=== PATIENT | male | born 1935 | race Caucasian/White ===

== ENCOUNTER → 2018-02-11 17:17 | Outpatient (CLI) | payer MEDICARE, SELFPAY ==
--- NOTE | 2018-02-11 09:45 | FLU_PTH ---
PATIENT: TAMERA STEPHENS LOC: [facility] U#:[id number] AGE/SX: 89/M ROOM: RE02/11/[address]: Dr. Kenji Pond MD : 1935 BED: DIS: SPEC #: [id number] RECD: 02/12/18 08:42 STATUS: JONATHAN SPENSER #: [id number] ANTON: 02/11/18 09:[address]: Kenji Pond DEPT: CYTOLOGY RECD BY: Lara Sanches ENTERED: 02/12/18 08:44 SP TYPE: Fluid OTHR DR: Dr. Feliberto Argueta MD Tissues: Urine Procedures: Pap Stain (control) Special Stain Group II Surgery Specimen Level IV Cytospin Fluid HEADER OPERATION: Not noted PRE-OP DIAGNOSIS: Hematuria TISSUE SUBMITTED: Urine for cytology DIAGNOSIS CYTOLOGY Urine for cytology (cytospin): Atypical urothelial cells noted. SJ:john 02/13/18 COMMENT Clinical correlation and appropriate follow up are necessary. CYTOLOGY STUDY Slides are reviewed. CYTOLOGY GROSS Received is 60 ml of gold fluid labeled with the patient's name and and designated per the requisition as urine. Submitted for cytology preparation. / NIKA:lyudmila 02/12/18 TC:5 CPT: 99360
[2018-02-11 17:19] LABS: Cytology, Body Fluid / CSF SEE PATHOLOGY REPORT
== END ==
PROVIDERS: Family Provider Family Medicine; PCP Family Medicine; Visit Provider Urology
DX: R31.9 Hematuria, unspecified (principal)
CPT/HCPCS: 88108; 88305; 88313

== ENCOUNTER 2018-03-21 12:38 | Inpatient (IN) | payer MEDICARE, SELFPAY ==
[2018-03-14 13:22] VITALS: BP 134/61; PULSE 52; RESP 16; TEMP 36.5; O2SAT 93; BMI 29.2
--- NOTE | 2018-03-14 13:38 | SDCEKG_ITS ---
Test Reason : Blood Pressure : / mmHG Vent. Rate : 060 BPM Atrial Rate : 060 BPM P-R Int : 160 ms QRS Dur : 086 ms QT Int : 396 ms P-R-T Axes : 034 048 055 degrees QTc Int : 396 ms Normal sinus rhythm Normal ECG Confirmed by INDIGO BARTLETT, FARIDEH ([id number]), telegraph editor MIGDALIA FREEMAN ([id number]) on 03/18/2018 3:37:12 PM Referred By: Kenji Pond Confirmed By:FARIDEH SOOD MD
[2018-03-14 14:03] LABS: Hematocrit 47.8 % (40-54); Hemoglobin 16.8 g/dl (13.0-16.5); Mean Corp Hgb Conc 35.1 g/gl (32-36); Mean Corpuscular Hgb 32.5 pg (27.0-32.0); Mean Corpuscular Volume 92.5 fL (80-94); Mean Platelet Vol. 9.8 fl (6.2-12.0); Platelet Count 255 K/mm3 (150-450); RBC Distribution Width CV 12.5 % (11.6-14.6); RBC Distribution Width SD 41.9 fl (35.1-43.9); Red Blood Count 5.17 M/mm3 (4.6-6.2); White Blood Count 6.7 K/mm3 (4.4-11.0)
[2018-03-14 14:06] LABS: Scan Indicated on CBC? Y/N NO
[2018-03-14 14:21] LABS: Anion Gap 6 (5-15); BUN 14 mg/dL (7-18); BUN/Creat Ratio 14.8 RATIO (10-20); Calcium,Total 8.2 mg/dL (8.5-10.1); Chloride 107 mmol/L (98-107); Creatinine, Serum 0.94 mg/dL (0.70-1.30); EST Glomerular Filtration Rate 81 mL/min (>60); Est Glom Filt Rate - Afr Amer 99 mL/min (>60); Estimated Creatinine Clearance 61.63 ml/min; Glucose 109 mg/dL (74-106); Potassium 3.8 mmol/L (3.5-5.1); Sodium Level 138 mmol/L (136-145); Thyroid Stim Hormone (TSH) 2.61 uIU/mL (0.358-3.74)
[2018-03-21] VITALS (12 sets, daily range): BP systolic 88–151; BP diastolic 49–85; PULSE 61–80; RESP 16–18; TEMP 36.1–36.9; O2SAT 92–97; BMI 29.2; BMI 30.7
--- NOTE | 2018-03-21 12:25 | PROS_PTH ---
PATIENT: TAMERA STEPHENS LOC: [facility] U#:[id number] AGE/SX: 82/M ROOM: [facility]309 RE03/21/[address]: Dr. Kenji Pond MD : 1935 BED: 1 DIS: 03/22/2018 SPEC #: [id number] RECD: 03/24/18 09:18 STATUS: JONATHAN DUEÑAS #: [id number] ANTON: 03/21/18 12:[address]: Kenji Pond DEPT: SURGICAL PATHOLOGY RECD BY: Ankush Agudelo ENTERED: 03/24/18 10:32 SP TYPE: TURP OTHR DR: Dr. Feliberto Argueta MD Tissues: Prostate, NOS Procedures: Surgery Specimen Level IV HEADER OPERATION: Cystoscopy, transurethral resection of the prostate PRE-OP DIAGNOSIS: BPH with obstruction, incomplete bladder emptying TISSUE SUBMITTED: Prostate tissue MICROSCOPIC DIAGNOSIS Prostate tissue, TUR: Benign prostatic hyperplasia, glandular and stromal type. Focal chronic inflammation and basal cell hyperplasia. JORDI:john 03/25/18 MICROSCOPIC DESCRIPTION Slides are reviewed. GROSS DESCRIPTION Received is one container labeled with the patient's name and designated prostate tissue. The specimen consists of multiple irregular fragments of pink-martínez, rubbery, soft tissue that in aggregate weigh 12.5 gm and measure in aggregate 5 x 4 x 2.5 cm. The entire specimen is submitted in 12 cassettes. / JORDI:john 03/24/18 TC:5 CPT: 57121
[2018-03-21] MEDS: Cefazolin 2 GM in 0.9% Normal Saline 100 ML IV (12:33)
--- NOTE | 2018-03-21 13:59 | PCM.OPRPT ---
Report of Operation Date of Procedure: 03/21/18 Pre-Operative Diagnosis: BPH with obstruction an incomplete emptying Post-Operative Diagnosis: Same Surgery/Procedure Performed:: Transurethral resection of the prostate Description of Surgical Findings:: 82-year-old male taken back to the operating room after smooth induction of general anesthesia he was placed supine on the table penis and testicles were prepped and draped in usual sterile fashion went into the bladder with a 30? cystoscope to inspect the prostate and bladder he had obstructive bilateral tissue and a small median lobe which are heavily trabeculated bladder no tumors or stones seen within the bladder I then switched over to the 26 Nepali continuous flow resectoscope resected the floor of the prostate and the median lobe down back to the verumontanum resected the left lobe of the prostate resected the right lobe of the prostate and then slowly work back and resected the right lobe completely and then resected the left lobe then very carefully resected the apical tissue went back and looked inside the bladder identified the right ureteral orifice and then identified the left ureteral orifice has been partially resected could see the orifice had been also cauterized in the team and try to obtain hemostasis site I transected the aorta orifice of the left side with the resectoscope to open it up after this was effluxing urine and was open decided not to leave a stent in and then can continue the resection on the left side and the right side all the way down to the Krystina pulled back to the sphincter the sphincter was instilled intact and a fairly wide open channel from the verumontanum into the bladder did not want him doing any further resection very careful resection of the roof of the bladder roof of the prostate. After obtaining good hemostasis all the chips were removed handed off as specimen and then put the bladder with a three-week catheter but a three-way catheter into the bladder on continuous bladder irrigation the urine was nice and clear is taken back to PACU in good condition. Type of Anesthesia:: General Drains: 3 way iraheta - Admit VTE Documentation VTE Present on Admission: No VTE Mechan Device Prophylaxis: SCD's VTE Pharm Prophylaxis ordered?: No Reason prophylaxis not ordered:: Treatment Not Indicated
[2018-03-21] MEDS: 0.9% Normal Saline 1,000 ML 75 ML IV (15:59)
[2018-03-21] MEDS: Ciprofloxacin 500 MG Tablet PO (22:37)
[2018-03-21] MEDS: Docusate Sodium 100 MG Capsule PO (22:37)
[2018-03-21] MEDS: Atorvastatin Calcium 40 MG Tablet PO (22:37)
[2018-03-22 04:20] VITALS: BP 122/74; PULSE 62; RESP 18; TEMP 36.5; O2SAT 97
[2018-03-22] MEDS: 0.9% Normal Saline 1,000 ML 75 ML IV (05:28)
[2018-03-22] MEDS: Levothyroxine 50 MCG Tablet PO (05:29)
[2018-03-22] MEDS: oxyCODONE 5 MG Tablet PO (05:44)
[2018-03-22] MEDS: Acetaminophen 325 MG Tablet PO (07:11)
--- NOTE | 2018-03-22 09:30 | PCM.DC.URO ---
Discharge Diet: Light diet - advance as tolerated Discharge Activity: May Drive, May Shower Lifting Restrictions: no heavy lifting. Call your doctor if your incision/area has: Sudden Increased Bleeding Call your doctor if you observe: Fever of 101 or Higher Instructions: Transurethral Resection of the Prostate (TURP): Home Recovery Allergies/Adverse Reactions: Allergies No Known Allergies Allergy (Verified 03/14/18 13:09) Medications to take at Discharge Atorvastatin Calcium [Lipitor] 40 mg PO QHS 03/14/18 Dutasteride 0.5 mg PO DAILY 03/14/18 Levothyroxine [Synthroid] 50 mcg PO DAILY 03/14/18 Ascorbic Acid 500 mg PO DAILY 03/21/18 Cholecalciferol (VIT D3) [Vitamin D3] 1,000 unit PO DAILY 03/21/18 Metoprolol Succinate 12.5 mg PO DAILY 03/21/18 Psyllium [Metamucil] 1 packet PO DAILY 03/21/18 Ciprofloxacin [Cipro] 500 mg PO BID #14 tab 03/22/18 The following prescriptions were given: Ciprofloxacin [Cipro] 500 mg PO BID #14 tab Primary Care Physician: Feliberto Argueta MD [Primary Care Provider] - Please Follow Up With: Kenji Pond MD When: please call to make an appointment.
[2018-03-22 10:00] VITALS: BP 144/76; PULSE 71; RESP 16; TEMP 36.9; O2SAT 94
[2018-03-22 10:30] VITALS: PULSE 71
[2018-03-22] MEDS: Metoprolol(XL)Succ 25 MG Tablet 12.5 MG PO (10:30)
[2018-03-22] MEDS: Psyllium 1 PACKET PO (10:31)
[2018-03-22] MEDS: Ascorbic Acid 500 MG Tablet PO (10:31)
[2018-03-22] MEDS: Ciprofloxacin 500 MG Tablet PO (10:31)
[2018-03-22] MEDS: Finasteride 5 MG Tablet PO (10:31)
[2018-03-22] MEDS: Pantoprazole Sodium 40 MG Tablet PO (10:31)
[2018-03-22] MEDS: Docusate Sodium 100 MG Capsule PO (10:31)
[2018-03-22 14:50] VITALS: BP 157/85; PULSE 74; RESP 16; TEMP 36.7; O2SAT 97
== END 2018-03-22 15:12 | disposition home or self-care (01) | DRG 714 ==
LOC: SDC 03-22 13:32
PROVIDERS: Anesthesiology; Admitting Provider Urology; Family Provider Family Medicine; PCP Family Medicine; Visit Provider Urology
PROC: 0VT08ZZ Resection of Prostate, Via Natural or Artificial Opening Endoscopic (ICD-10-PCS; principal; 2018-03-21 12:15)
DX: N40.1 Benign prostatic hyperplasia with lower urinary tract symptoms (principal); R31.0 Gross hematuria; R35.0 Frequency of micturition; R39.14 Feeling of incomplete bladder emptying; I48.91 Unspecified atrial fibrillation; I10 Essential (primary) hypertension; E78.5 Hyperlipidemia, unspecified; E03.9 Hypothyroidism, unspecified; Z79.02 Long term (current) use of antithrombotics/antiplatelets; Z79.82 Long term (current) use of aspirin; Z79.899 Other long term (current) drug therapy; I25.2 Old myocardial infarction; Z95.5 Presence of coronary angioplasty implant and graft; Z86.73 Personal history of transient ischemic attack (TIA), and cerebral infarction without residual deficits
CPT/HCPCS: 80048; 84443; 85027; 88305; 93005; 97802; J7030; J7120

== ENCOUNTER → 2019-12-28 17:05 | Outpatient (CLI) | payer MEDICARE, SELFPAY ==
[2018-03-21 15:42] VITALS: BMI 30.7
== END ==
PROVIDERS: PCP Family Medicine; Referring Provider Urology; Visit Provider Urology
DX: R30.9 Painful micturition, unspecified (principal)
CPT/HCPCS: 87077; 87086; 87088

== ENCOUNTER → 2024-12-04 | Outpatient (CLI) | payer MEDICARE, SELFPAY ==
--- NOTE | 2024-12-04 12:45 | RAD_ITS ---
PROCEDURE: Fluoroscopic guided right shoulder injection. DATE: December 04, 2024. INDICATION: Male, 89 years old. Chronic shoulder pain. PHYSICIAN: Ruddy Byrd M.D. MEDICATIONS: 5 mg of betamethasone and 4 cc of 1% lidocaine. 2% lidocaine administered subcutaneously for local anesthesia. ACCESS SITE: Right shoulder. NEEDLE: 22-gauge spinal needle. FLUOROSCOPY TIME (if supplied): (0:45) minutes/seconds. 5.05 mGy. 5 images were submitted. FINDINGS: The risks, benefits, and alternatives to the procedure were explained to the patient. The specific risks of bleeding, infection, and neurovascular injury were detailed and accepted. Witnessed informed consent was obtained. A 22-gauge spinal needle was positioned under radiographic fluoroscopic localization. Approximately 2 cc of Omnipaque Isovue 300 instilled for localization purposes. Medication was then injected. The patient tolerated the procedure well without any immediate complications. RAD/Inj/Asp Jese Jt Should/Hip/Knee IMPRESSION: 1. Successful fluoroscopic guided right shoulder injection. 2. The patient tolerated the procedure well. Electronically Signed: Ruddy Byrd MD at 8:37 EST ,
[2024-12-04] MEDS: Lidocaine 2% (5ml sdv) 5 ML VIAL.MPF INFILT (12:57)
[2024-12-04] MEDS: Lidocaine 1% (5 ml sdv) 5 ML Vial 4 ML OPERA.SITE (13:01)
[2024-12-04] MEDS: Betamethasone/Betamethasone 30 MG/5 ML Vial 6 MG INTRAARTIC (13:03)
== END | disposition home or self-care (01) ==
PROVIDERS: PCP Nurse Practitioner Primary Care; Referring Provider Specialist; Visit Provider Specialist
DX: M19.011 Primary osteoarthritis, right shoulder (principal); R53.1 Weakness
CPT/HCPCS: 20610; 77002; Q9967; J0702

== ENCOUNTER → 2025-03-02 | Outpatient (CLI) | payer MEDICARE, SELFPAY ==
--- NOTE | 2025-03-02 14:05 | RAD_ITS ---
PROCEDURE: ABDOMEN SINGLE VIEW 03/02/2025 REASON FOR EXAM: CALCULUS OF KIDNEY TECHNIQUE: Single view abdomen. COMPARISON: None. FINDINGS: Bowel gas: Bowel gas pattern is normal. No evidence of bowel obstruction. Calcifications: Calcific density overlying the expected region of the right kidney measuring at least 2.4 cm. 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 There are degenerative changes of the spine. Other: Prior cholecystectomy. Calcific plaque of the aortoiliac vessels. RAD/Abdomen Single View IMPRESSION: Calcific density overlying the expected region of the right kidney. Reading Location: [id number]
== END | disposition home or self-care (01) ==
LOC: RAD 13:40
PROVIDERS: PCP Nurse Practitioner Primary Care; Referring Provider Nurse Practitioner; Visit Provider Nurse Practitioner
DX: N20.0 Calculus of kidney (principal)
CPT/HCPCS: 74018